=== PATIENT | male | born 1955 | race Caucasian/White ===

== ENCOUNTER 2022-07-01 04:22 | Day surgery (SDC) | payer OTHER ==
[2022-06-28 10:01] VITALS: BMI 25.8
[2022-07-01] MEDS ORDERED: MIDAZOLAM HCL 2 MG/2 ML SINGLE DOSE VIAL ONE (12:49)
[2022-07-01] MEDS ORDERED: ONDANSETRON 4 MG/2 ML VIAL ONE (12:50)
[2022-07-01 13:46] VITALS: RESP 18
[2022-07-01 15:00] VITALS: BP 122/70; PULSE 60; TEMP 97.9
[2022-07-01] MEDS ORDERED: ACETAMINOPHEN 325 MG TABLET (FP) PO PRN (15:34)
[2022-07-01] MEDS ORDERED: ONDANSETRON 4 MG/2 ML VIAL IVPUSH PRN (15:34)
[2022-07-01] MEDS ORDERED: LACTATED RINGERS SOLUTION 1,000 ML IV SCH (15:45)
== END 2022-07-01 14:57 | disposition home or self-care (01) ==
LOC: JASU-SURG 04:22
PROVIDERS: ATTEND Urology
PROC: 0TF3XZZ Fragmentation in Right Kidney Pelvis, External Approach (ICD-10-PCS; principal; 2022-07-01 13:00)
DX: N20.0 Calculus of kidney (principal)

== ENCOUNTER 2022-10-07 04:15 | Day surgery (SDC) | payer OTHER ==
[2022-10-01 16:53] VITALS: BMI 25.8
[2022-10-07 09:27] VITALS: RESP 18
[2022-10-07] MEDS ORDERED: MIDAZOLAM HCL 2 MG/2 ML SINGLE DOSE VIAL ONE (11:23)
[2022-10-07] MEDS ORDERED: DEXAMETHASONE SOD PHOSPHATE 4 MG/1 ML VIAL ONE (11:24)
[2022-10-07] MEDS ORDERED: ONDANSETRON 4 MG/2 ML VIAL ONE (11:24)
[2022-10-07] MEDS ORDERED: LIDOCAINE HCL/PF 2% SDV 5ML VIAL ONE (12:12)
[2022-10-07 14:03] VITALS: BP 107/62; PULSE 88; TEMP 97.6
== END 2022-10-07 13:41 | disposition home or self-care (01) ==
LOC: JASU-SURG 04:15
PROVIDERS: ATTEND Urology
PROC: 0TC17ZZ Extirpation of Matter from Left Kidney, Via Natural or Artificial Opening (ICD-10-PCS; principal; 2022-10-07 11:00)
DX: N20.0 Calculus of kidney (principal)

== ENCOUNTER 2022-12-02 04:14 | Day surgery (SDC) | payer OTHER ==
[2022-11-27 15:58] VITALS: BMI 25.8
[2022-12-02] MEDS ORDERED: ONDANSETRON 4 MG/2 ML VIAL ONE (14:32)
[2022-12-02] MEDS ORDERED: MIDAZOLAM HCL 2 MG/2 ML SINGLE DOSE VIAL ONE (14:32)
[2022-12-02 15:19] VITALS: RESP 16
[2022-12-02 16:17] VITALS: BP 111/71; PULSE 86; TEMP 97.1
== END 2022-12-02 16:19 | disposition home or self-care (01) ==
LOC: JASU-SURG 04:14
PROVIDERS: ATTEND Urology
PROC: 0TF3XZZ Fragmentation in Right Kidney Pelvis, External Approach (ICD-10-PCS; principal; 2022-12-02 12:30)
DX: N20.0 Calculus of kidney (principal)